=== PATIENT | male | born 1985 | race Caucasian/White ===

== ENCOUNTER 2018-03-16 09:09 | Emergency (ER) | payer OTHER, SELFPAY ==
[2018-03-16 09:10] VITALS: BP 113/73; PULSE 90; RESP 16; TEMP 36.3; O2SAT 98; BMI 28.1
--- NOTE | 2018-03-16 09:25 | ED.DCSUM_ITS ---
- ER Visit Summary Date of Service: 03/16/18 Chief Complaint: Upper left back pain History of Present Illness: The patient is a 32 M who awoke this morning and reported stiffness in his left upper back. The stiffness became painful and has progressively gotten worse. He reports pain with movement of his left upper extremity, twisting or bending and breathing. He has no history of PE or DVT and has no risk factors. He denies any leg pain, swelling or discoloration. He denies shortness of breath, cough, dyspnea on exertion. No complaint of nausea, vomiting or diarrhea. He is not noted a rash. Please read written note for complete detail Physical Examination: Vital signs noted and normal. HEENT is unremarkable. Heart is regular without murmur, gallop or rub. S1 and S2 are normal. Lungs are clear to auscultation with good movement of air bilaterally. Patient has reproducible left upper back pain. There is no rash or lesions noted. There is no neurovascular abnormality upper extremities. Distal pulses are palpable and symmetric. There is no hepatosplenomegaly. There is no palpable pulsatile mass of the abdomen. There is no asymmetry, swelling, discoloration, leg vein distention, palpable cords or tenderness along the distribution of the deep venous system. Test Results: None Emergency Department Course and Treatment: Patient is PERC negative and has reproducible back pain will treat with NSAIDs since there is no contraindication and appropriate work restrictions. Since vital signs are normal he is not hypoxic and PERC negative reason no laboratory testing or chest x-ray. Treatment Plan: Naprosyn 500 mg twice daily Disposition: Discharge with work restrictions Impression: Upper left musculoskeletal back pain/strain This note was generated with [employer] dictation software. It may contain incorrect words, spelling, and punctuation that were not noted in review of the chart prior to signing ED Disposition - Plan for ED Patient: Disposition: Home or Assisted Living Chief Complaint: Back Instructions: ED Neck Back Pain General Prescriptions: Naproxen [Naprosyn] 500 mg PO BID #14 tab Referrals: [facility],Out of [NON-STAFF] - 1 Week if not improving
[2018-03-16] MEDS: Naproxen 250 MG Tablet 500 MG PO (09:47)
[2018-03-16 09:51] VITALS: BP 105/61; PULSE 75; RESP 16; O2SAT 96
== END 2018-03-16 09:52 | disposition home or self-care (01) ==
PROVIDERS: Emergency Provider Emergency Medicine; Family Provider Family Medicine; PCP Family Medicine
DX: M54.6 Pain in thoracic spine (principal); S29.012A Strain of muscle and tendon of back wall of thorax, initial encounter; X58.XXXA Exposure to other specified factors, initial encounter; Y93.84 Activity, sleeping; Y92.003 Bedroom of unspecified non-institutional (private) residence as the place of occurrence of the external cause; Y99.8 Other external cause status
CPT/HCPCS: 99283

== ENCOUNTER 2020-12-01 18:57 | Emergency (ER) | payer MEDICAID, SELFPAY ==
[2020-12-01 18:58] VITALS: BP 114/70; PULSE 78; RESP 20; TEMP 36.1; O2SAT 100; BMI 29.0
--- NOTE | 2020-12-01 19:30 | ED.VIS.BACK ---
HPI History of Present Illness Chief Complaint: Back Narrative Narrative: 35-year-old male presenting with lower back pain. He states that he sneezed and he started to have lower back pain. He feels as if it hurts so bad he cannot work tonight. He is here for a work note. Patient states he took nothing for pain prior to arrival. He admits to a history of back problems. He denies any direct trauma. No loss of bladder or bowel control. No paresthesias. PFSH PFSH Home Medications cyclobenzaprine 10 mg PO TID PRN #20 tablet 12/01/20 [Rx Last Taken Unknown] prednisone 50 mg PO DAILY 3 Days #3 tab 12/01/20 [Rx Last Taken Unknown] Allergy/AdvReac Type Severity Reaction Status Date / Time No Known Allergies Allergy Unverified 12/01/20 18:57 Social History Smoking Status: Never smoker alcohol intake: current alcohol intake frequency: holidays/special occasions only ROS ROS ED Constitutional Constitutional ED: Denies chills, fever(s) or sweats Eyes Eyes: Denies blurry vision or change in vision ENT ENT ED: Denies ear pain, rhinorrhea or sore throat Cardiovascular Cardiovascular: Denies chest pain, palpitations or racing heartbeat Respiratory/Chest Respiratory/Chest: Denies cough, dyspnea or sputum Gastrointestinal Gastrointestinal: Denies abdominal pain, constipation, diarrhea or vomiting Genitourinary Genitourinary ED: Denies dysuria, hematuria or urinary frequency Musculoskeletal Musculoskeletal: Reports back pain; Denies arthralgias, myalgias or neck pain Integumentary Denies abscess, Abrasions or rash Neurologic Neurologic: Denies headache(s), paresthesias or weakness Psychiatric Psychiatric: Denies anxiety, depression, suicidal ideation or suicidal thoughts Endocrine Endocrinology: Denies polydipsia or polyuria EXAM Physical Exam Const Vital Signs: 12/01/20 18:58 Temperature 97.0 F L Temperature Source Temporal Pulse Rate 78 Respiratory Rate 20 H Blood Pressure 114/70 Blood Pressure Mean 84 Pulse Ox 100 Oxygen Delivery Method Room Air General Appearance ED: Negative for pallor HEENT Reports normocephalic, head/scalp atraumatic and moist mucous membranes Negative for trauma Eyes PERRL and EOMs intact bilaterally Chest Wall inspection of chest normal and palpation of chest normal Resp normal respiratory effort and clear to auscultation bilaterally Auscultation: Negative for rales, rhonchi or wheezes Cardio regular rate and regular rhythm GI Auscultation: normoactive bowel sounds Palpation: soft Narrative: Deferred Back/Spine no CVA tenderness and no thoracic nor lumbar tenderness Back/Spine Narrative: Tenderness to palpation of the lumbar spine diffusely. No midline spinal deformity or step-off. General Back: Negative for CVA tenderness Cervical Spine: cervical spine tenderness Extremity normal to inspection General Extremety ED: Negative for edema or tenderness General Extremity: Negative for edema Neuro oriented x3 and CN's II-XII intact bilaterally Sensorium / Orientation: alert Motor Exam: strength 5/5 throughout Psych mental status grossly normal Attitude: No agitated Skin no rashes or lesions noted and no wounds General Skin Exam: Negative for jaundice or pallor MDM MDM MDM Narrative Medical decision making narrative: Patient has nontraumatic pain to the lower back and history of back issues. On examination he has generalized tenderness of the lumbar spine without any midline spinal deformity or step-off. Patient will be given prednisone and muscle relaxers with first dose in the ED. He will be given a few days of prednisone and then switch to anti-inflammatories as needed. Impression: 1. Lumbar strain Discharge Plan Triage Chief Complaint: Back ED Provider: Ramirez Mckeon Dx/Rx/DC Orders Instructions: ED Back Spasm, No Trauma Prescriptions: New prednisone 50 mg tablet 50 mg PO DAILY 3 Days Qty: 3 RF: 0 cyclobenzaprine 10 mg tablet 10 mg PO TID PRN (Reason: Muscle Spasm) Qty: 20 RF: 0 Stand Alone Forms: ED Work / School Excuse Primary Care Provider: Refugio Jordan Referrals: Refugio Jordan MD [Primary Care Provider] - Disposition Disposition: Home, self care
[2020-12-01] MEDS: predniSONE 20 MG Tablet 60 MG PO (19:36)
[2020-12-01] MEDS: Orphenadrine 100 MG Tablet PO (19:36)
== END 2020-12-01 19:48 | disposition home or self-care (01) ==
PROVIDERS: Emergency Provider Student in an Organized Health Care Education/Training Program; PCP Family Medicine
DX: S39.012A Strain of muscle, fascia and tendon of lower back, initial encounter (principal); X50.1XXA Overexertion from prolonged static or awkward postures, initial encounter; Y93.89 Activity, other specified; Y92.89 Other specified places as the place of occurrence of the external cause; Y99.8 Other external cause status
CPT/HCPCS: 99283